=== PATIENT | female | born 1995 | race African-American/Black ===

== ENCOUNTER 2017-03-06 21:51 | Emergency (ER) | payer MEDICAID ==
[~2017-03-06] VITALS: Ht 160 cm; Wt 121.0 kg
[~2017-03-06 21:51] MED LIST: MOTRIN; VICODIN; [UNRECOGNIZED DRUG - REMARK]
[2017-03-06] MEDS ORDERED: ONDANSETRON HCL 4MG/2ML VIAL IV ONE (23:30)
[2017-03-06] MEDS ORDERED: SODIUM CHLORIDE 0.9% 1,000 ML IV ONE (23:30)
[2017-03-06] MEDS ORDERED: KETOROLAC 30MG/ML VIAL IV ONE (23:30)
[2017-03-06] MEDS ORDERED: PROCHLORPERAZINE MALEATE 10MG TABLET PO ONE (23:30)
[2017-03-07 01:46] VITALS: BP 115/68
== END 2017-03-07 01:48 | disposition home or self-care (01) ==
LOC: ER 21:51
DX: R51 Headache (principal); J45.909 Unspecified asthma, uncomplicated
CPT/HCPCS: 81025; 96361; 96374; 96375; 99285; J1885; J2405; J7030; Z7610; Q0164

== ENCOUNTER 2019-05-21 08:40 | Emergency (ER) | payer SELFPAY ==
[~2019-05-21] VITALS: Ht 160 cm; Wt 130.0 kg
[2019-05-21] MEDS ORDERED: MAGNESIUM/ALUMINUM HYDROXIDE/SIMETHICONE 30ML UDC PO STA (10:25)
[2019-05-21] MEDS ORDERED: SODIUM CHLORIDE 0.9% 1,000 ML IV ONE (10:25)
[2019-05-21] MEDS ORDERED: VISCOUS LIDOCAINE 2% 15 ML UDC PO STA (10:25)
[2019-05-21] MEDS ORDERED: DICYCLOMINE 10 MG/5 ML ORAL SYR PO STA (10:25)
[2019-05-21 10:48] LABS: BASOPHILS % 0.5 % (0.0-2.0); EOSINOPHILS % 1.4 % (0.0-5.0); HEMATOCRIT. 38.6 % (36.0-48.0); HEMOGLOBIN. 13.4 g/dL (12.0-16.0); LYMPHOCYTES % 28.2 % (20.0-50.0); MEAN CORPUSCULAR HEMOGLOBIN 31.2 pg (28.0-32.0); MEAN CORPUSCULAR VOLUME 90.2 fL (81.0-99.0); MEAN PLATELET VOLUME 8.8 fl (7.4-10.4); MONOCYTES % 6.4 % (2.0-8.0); NEUTROPHILS % 63.5 % (40.0-76.0); PLATELET 269 x1000/uL (130-400); RED BLOOD CELL COUNT 4.29 mill/uL (4.2-5.4); RED CELL DISTRIBUTION WIDTH 13.1 % (11.6-14.6)
[2019-05-21 10:53] LABS: CHLORIDE 109 mEq/L (98-107)
[2019-05-21 10:56] LABS: CLARITY URINE CLEAR (CLEAR); COLOR URINE YELLOW (YELLOW); KETONES URINE NEGATIVE (NEGATIVE); LEUKOCYTE ESTERASE URINE TRACE (NEGATIVE); NITRITE URINE NEGATIVE (NEGATIVE); OCCULT BLOOD URINE NEGATIVE (NEGATIVE); PROTEIN URINE NEGATIVE (NEGATIVE); SPECIFIC GRAVITY URINE 1.014 (1.005-1.030); UROBILINOGEN URINE 0.2 E.U./dL (0.2-1.0)
[2019-05-21 11:45] VITALS: BP 114/57
== END 2019-05-21 12:02 | disposition home or self-care (01) ==
LOC: ER 08:40
DX: R10.9 Unspecified abdominal pain (principal)
CPT/HCPCS: 36415; 80053; 81003; 81025; 83690; 85025; 99284; J7030

== ENCOUNTER 2019-05-30 20:39 | Emergency (ER) | payer SELFPAY ==
[~2019-05-30] VITALS: Ht 160 cm; Wt 127.0 kg
[2019-05-31 00:28] LABS: CLARITY URINE CLOUDY (CLEAR); COLOR URINE YELLOW (YELLOW); KETONES URINE TRACE (NEGATIVE); LEUKOCYTE ESTERASE URINE 2+ (NEGATIVE); NITRITE URINE NEGATIVE (NEGATIVE); OCCULT BLOOD URINE 3+ (NEGATIVE); PROTEIN URINE TRACE (NEGATIVE); SPECIFIC GRAVITY URINE 1.027 (1.005-1.030); UROBILINOGEN URINE 0.2 E.U./dL (0.2-1.0)
[2019-05-31 01:41] VITALS: BP 109/75
== END 2019-05-31 02:45 | disposition home or self-care (01) ==
LOC: ER 20:39
DX: N39.0 Urinary tract infection, site not specified (principal); R55 Syncope and collapse; Z52.9 Donor of unspecified organ or tissue; K21.9 Gastro-esophageal reflux disease without esophagitis; F12.10 Cannabis abuse, uncomplicated; Z90.49 Acquired absence of other specified parts of digestive tract
CPT/HCPCS: 81003; 81025; 87077; 87186; 93005; 99284

== ENCOUNTER 2019-09-18 08:48 | Emergency (ER) | payer SELFPAY ==
[~2019-09-18] VITALS: Ht 160 cm; Wt 128.0 kg
[2019-09-18] MEDS ORDERED: NAPROXEN 250MG TABLET PO ONE (10:00)
[2019-09-18] MEDS ORDERED: METOCLOPRAMIDE HCL 10MG TABLET PO ONE (10:00)
[2019-09-18 10:19] LABS: CLARITY URINE CLEAR (CLEAR); COLOR URINE YELLOW (YELLOW); KETONES URINE TRACE (NEGATIVE); LEUKOCYTE ESTERASE URINE 2+ (NEGATIVE); NITRITE URINE POSITIVE (NEGATIVE); OCCULT BLOOD URINE NEGATIVE (NEGATIVE); PROTEIN URINE NEGATIVE (NEGATIVE); SPECIFIC GRAVITY URINE 1.013 (1.005-1.030); UROBILINOGEN URINE 0.2 E.U./dL (0.2-1.0)
[2019-09-18 10:48] VITALS: BP 122/86
== END 2019-09-18 10:49 | disposition home or self-care (01) ==
LOC: ER 08:48
DX: N39.0 Urinary tract infection, site not specified (principal)
CPT/HCPCS: 81003; 81025; 99283; J8597

== ENCOUNTER 2020-03-07 15:52 | Emergency (ER) | payer MEDICAID ==
[~2020-03-07] VITALS: Ht 172.7 cm; Wt 125.0 kg
[2020-03-07 16:13] VITALS: BP 131/91
== END 2020-03-07 16:47 | disposition left against medical advice (07) ==
LOC: ER 15:52
DX: Z53.21 Procedure and treatment not carried out due to patient leaving prior to being seen by health care provider (principal)

== ENCOUNTER 2021-12-30 22:34 | Emergency (ER) | payer MEDICAID ==
[~2021-12-30] VITALS: Ht 160 cm; Wt 96.3 kg
[2021-12-30 22:58] VITALS: BP 114/82
[2021-12-30] MEDS ORDERED: KETOROLAC 30MG/ML VIAL IM ONE (23:30)
[2021-12-30] MEDS ORDERED: CYCLOBENZAPRINE 10MG TABLET PO ONE (23:30)
[2021-12-30] MEDS ORDERED: NAPR-1176 MT (23:44)
[2021-12-30] MEDS ORDERED: CYCL10TA7 MT (23:44)
== END 2021-12-31 01:00 | disposition home or self-care (01) ==
LOC: ER 22:34
DX: S16.1XXA Strain of muscle, fascia and tendon at neck level, initial encounter (principal); J02.9 Acute pharyngitis, unspecified; X58.XXXA Exposure to other specified factors, initial encounter; Y93.89 Activity, other specified; Y92.89 Other specified places as the place of occurrence of the external cause; Y99.8 Other external cause status
CPT/HCPCS: 96372; 99283; J1885

== ENCOUNTER 2023-04-03 23:39 | Emergency (ER) | payer MEDICAID, OTHER ==
[~2023-04-03] VITALS: Ht 162.6 cm; Wt 92.0 kg
[~2023-04-03 23:39] MED LIST changes: +CYCL10TA21 MT; +NAPR-1176 MT
[2023-04-04 00:01] VITALS: BP 111/63; PULSE 69; RESP 16; TEMP 98.2; O2SAT 96
== END 2023-04-04 00:13 | disposition left against medical advice (07) ==
LOC: ER 23:53
DX: Z53.21 Procedure and treatment not carried out due to patient leaving prior to being seen by health care provider (principal)
CPT/HCPCS: 99281

== ENCOUNTER 2023-06-11 22:24 | Emergency (ER) | payer MEDICAID, OTHER ==
[~2023-06-11] VITALS: Ht 160 cm; Wt 102.0 kg
[2023-06-11 22:30] VITALS: BP 106/83; O2SAT 100
[2023-06-12] MEDS ORDERED: CETI10TA6 PO (00:12)
[2023-06-12] MEDS ORDERED: NAPR-681 PO (00:12)
[2023-06-12] MEDS ORDERED: FLUT9.9S BOTHNSTRLS (00:12)
[2023-06-12] MEDS ORDERED: AMOX1TAB16 PO (00:12)
[2023-06-12] MEDS ORDERED: METHYLPREDNISOLONE SOD SUCC 125MG/2ML (ACT-O-VIAL) IM ONE (00:15)
[2023-06-12 00:37] VITALS: PULSE 92; RESP 17; TEMP 98.5
== END 2023-06-12 00:39 | disposition home or self-care (01) ==
LOC: ER 22:24
DX: J01.90 Acute sinusitis, unspecified (principal); Z90.89 Acquired absence of other organs; Z98.890 Other specified postprocedural states
CPT/HCPCS: 81025; 99283; 96372; J2930; Z7610

== ENCOUNTER 2024-09-16 17:51 | Emergency (ER) | payer MEDICAID ==
[~2024-09-16] VITALS: Ht 160 cm; Wt 113.4 kg
[~2024-09-16 17:51] MED LIST changes: +AMOX1TAB16 PO; +CETI10TA6 PO; +FLUT9.9S BOTHNSTRLS; +NAPR-681 PO
[2024-09-16 17:59] VITALS: BP 113/81; TEMP 98; O2SAT 100
[2024-09-16 18:02] VITALS: PULSE 82; RESP 16; O2SAT 100
[2024-09-17] MEDS ORDERED: ALBU90AE INH (10:53)
== END 2024-09-16 19:22 | disposition left against medical advice (07) ==
LOC: ER 17:51
DX: J45.909 Unspecified asthma, uncomplicated (principal); Z76.0 Encounter for issue of repeat prescription; Z98.890 Other specified postprocedural states; Z53.21 Procedure and treatment not carried out due to patient leaving prior to being seen by health care provider

== ENCOUNTER 2024-09-17 10:11 | Emergency (ER) | payer MEDICAID ==
[~2024-09-17] VITALS: Ht 170.2 cm; Wt 95.0 kg
[2024-09-17 10:14] VITALS: O2SAT 100
[2024-09-17 10:19] VITALS: BP 123/87; PULSE 70; RESP 18; TEMP 98.1; O2SAT 99
[2024-09-17] MEDS ORDERED: ALBU90AE INH (10:53)
== END 2024-09-17 12:16 | disposition home or self-care (01) ==
LOC: ER 10:11
DX: J45.909 Unspecified asthma, uncomplicated (principal); Z76.0 Encounter for issue of repeat prescription; Z79.1 Long term (current) use of non-steroidal anti-inflammatories (NSAID); Z90.89 Acquired absence of other organs; Z98.890 Other specified postprocedural states; Z79.899 Other long term (current) drug therapy
CPT/HCPCS: 99281